=== PATIENT | male | born 1940 | race Caucasian/White ===

== ENCOUNTER 2017-06-10 06:01 | Inpatient (IN) | payer OTHER ==
[~2017-06-10] VITALS: Ht 170.2 cm; Wt 98.0 kg
[2017-06-10 06:23] VITALS: BP 141/76
--- NOTE | 2017-06-10 12:15 | NUR ---
RECIEVED PT. FROM RECOVERY ROOM S/P LEFT TOTAL KNEE REPLACEMENT ORIF 06/10/17 W/ ADAPTIC DRESSING STEPHEN WRAP BANDAGE W/ HEMOVAC INPLACE NO SUCTION NOTED SERROUSANGUIONOUS DRAINAGE. ON CPM MACHINE ROM 40 DEGREE W/ 60 DEGREE FLEXION ANA CRISTINA. WELL.C/O SLIGHT PAIN IN LEFT KNEE W/ SCALE OF 2/10 MADE PT. COMFORTABLE IN BED. CALL LIGHT W/ IN REACH.NO ACUTE DISTRESS NOTED.V/S T- 97.6-HR-79 RR-20 B/P 120/66 W/ 02 SAT 97% W/ 2L N/C.WILL CONT. TO MONITOR PT.
[2017-06-10 12:49] VITALS: BP 120/66
--- NOTE | 2017-06-10 14:38 | NUR ---
PT COMPLAIN OF PAIN FROM LEFT KNEE SURGERY. S/P TOTAL LEFT KNEE REPLACEMENT. MEDICATED ORDERED WITH DILAUDID. MADE COMFORTABLE IN BED. CALL LIGHT WITHIN REACH. HEMOVAC IN PLACE WITH OUTPUT OF 400 CC BRIGHT RED BLOODY DRAINAGE. CPM MACHINE CONTINUED 40 DEGREE ROM AND 60 DEGREE FLEXION AND TOLERATING WELL. IV FLUIDS INFUSING WELL ON RIGHT HAND.
[2017-06-10 14:58] VITALS: BP 123/70
[2017-06-10] MEDS ORDERED: LOSARTAN POTASS1 TA6 PO ×2 (14:58→15:00)
[2017-06-10] MEDS ORDERED: SIMVASTATIN10 M1 PO (15:00)
[2017-06-10] MEDS ORDERED: METOPROLOL SUCC50 M2 PO (15:01)
[2017-06-10] MEDS ORDERED: ALLOPURINOL100 MG PO (15:01)
[2017-06-10] MEDS ORDERED: ALFUZOSIN HYDRO10 M1 PO (15:02)
--- NOTE | 2017-06-10 15:32 | NUR ---
P.T. NOTES CPM MACHINE APPLIED AND SET UP AT MODERATE SPEED FROM 0-60* ON HIS (L) LE AND INFORMED THE NURSE OF ITS REMOVAL TONIGHT AT 10:30 PM. CPM SET UP
[2017-06-10 15:48] LABS: MAGNESIUM 1.7 mg/dL (1.8-2.4); PHOSPHOROUS 4.4 mg/dL (2.5-4.9)
[2017-06-10 15:49] LABS: T3 TOTAL 0.73 ng/mL
--- NOTE | 2017-06-10 16:07 | NUR ---
P.T AT BEDSIDE AND SET UP CPM MACHINE TO 0-60 DEGREE AND NEEDS TO BE OFF THE CPM MACHINE AT 22;30 PM TONIGHT AND ACC.TO P.T.THEY WILL BE BACK TO ADJUST THE CPM MACHINE TOMORROW.PT. RESTING COMFORTABLY IN BED. CAll light w/ in reach.
[2017-06-10 16:11] LABS: FREE T4 1.08 ng/dL (0.76-1.46); FREE THYROXINE INDEX 2.8 ug/dL (1.4-4.5); T4(THYROXINE) 6.9 ug/dL (4.7-13.3)
[2017-06-10 16:58] VITALS: BP 105/54
--- NOTE | 2017-06-10 18:39 | NUR ---
PT. DID NOT VOID YET ENCOURAGE TO USE THE URINAL BUT PT. STATED HE WILL TRY IT LATER VISITORS AT BEDSIDE.CALL LIGHT W/ IN REACH.
[2017-06-10 18:48] LABS: PLATELET COUNT 175 x10^3mcL (130-400); RED CELL DISTRIBUTION WIDTH 14.2 % (11.5-14.5)
[2017-06-10 18:51] LABS: BASOPHIL % 0 % (0-2)
[2017-06-10 18:53] LABS: CALCIUM 8.3 mg/dL (8.5-10.1); CARBON DIOXIDE 21.7 mmol/L (21-32); CHLORIDE SERUM 104 mmol/L (98-107); CREATININE SERUM 1.4 mg/dL (0.7-1.3); GLUCOSE SERUM 173 mg/dL (74-106); POTASSIUM SERUM 4.3 mmol/L (3.5-5.1); SODIUM SERUM 139 mmol/L (136-145)
--- NOTE | 2017-06-10 20:14 | NUR ---
PT RESTING IN BED. AOX4. VERBAL WITH CLEAR SPEECH. ON O2 2L VIA NC 99%. LUNGS CLEAR BILATERALLY. ON TELE 34, NSR. DENIES ANY CHEST PAIN. ABD ROUND AND SOFT. BOWEL SOUNDS ACTIVE. SKIN WARM AND DRY. IV TO RIGHT HAND PATENT AND INTACT. NO S/S OF INFECTION NOTED. MAG SULFATE 1 GM IVPB INFUSING WELL. CPM MACHINE TO LLE IN PLACE. STEPHEN WRAP TO LEFT KNEE. PT C/O 8/10 PAIN TO LEFT KNEE. PRN DILAUDID 1 MG IVP GIVEN. SIDE RAILS UP. CALL LIGHT WITHIN REACH. WILL CONTINUE TO MONITOR.
[2017-06-10 21:18] VITALS: BP 119/68
--- NOTE | 2017-06-10 21:37 | NUR ---
AT 2114, NOTED PT HASN'T VOIDED SINCE COMING BACK FROM SURGERY. PERFORMED BLADDERSCAN = [address] KATZ NOTIFIED AND AWARE. PER STRAIGHT CATH AT THIS TIME. FOR CPM MACHINE, KEEP PT ON TOLERATED. OKAY TO TURN OFF WHEN ASLEEP AND TURN BACK ON WHEN WAKING UP IN THE AM. PT STRAIGHT CATHED, 200 YELLOR URINE REMOVED. CPM MACHINE TURNED OFF AT THIS TIME FOR PT TO SLEEP. DENIES ANY PAIN AT THIS TIME. NO S/S OF DISTRESS NOTED. IV INFUSING WELL. CALL LIGHT WITHIN REACH. WILL CONTINUE TO MONITOR.
--- NOTE | 2017-06-11 00:34 | NUR ---
PT RESTING IN BED WITH EYES CLOSED. BREATHING EQUAL AND UNLABORED. REMAINS ON O2 2L VIA NC. NO S/S OF RESPIRATORY DISTRESS NOTED. IV PATENT AND INFUSING WELL. LLE EXTENDED ON CPM MACHINE, BUT REMAINS OFF AT THIS TIME. NO S/S OF DISTRESS NOTED. RESTING COMFORTABLY WITH RELAXED FACIAL FEATURES. CALL LIGHT WITHIN REACH. WILL CONTINUE TO MONITOR.
[2017-06-11 05:37] VITALS: BP 112/63
--- NOTE | 2017-06-11 06:15 | NUR ---
PT SLEPT WELL THROUGHOUT THE NIGHT. BREATHING EQUAL AND UNLABORED. EASILY AROUSED WHEN NAME CALLED. PT HAD NO VOID SINCE STRAIGHT CATH LAST EVENING. RAMIREZ CATHETER INSERTED PER DR. KATZ D/T PT NOT VOIDING AFTER STRAIGHT CATH. PT TOLERATED WELL. F/C DRAINING CLEAR YELLOW URINE. HEMOVAC DRAINED 100 ML. CPM MACHINE ON FLEXION 60. DENIES ANY PAIN AT THIS TIME. NO S/S OF DISTRESS NOTED. CALL LIGHT WITHIN REACH. WILL CONTINUE TO MONITOR.
[2017-06-11 06:17] LABS: BASOPHIL % 0.1 % (0-2); PLATELET COUNT 156 x10^3mcL (130-400); RED CELL DISTRIBUTION WIDTH 14.2 % (11.5-14.5)
[2017-06-11 06:24] LABS: CALCIUM 8.2 mg/dL (8.5-10.1); CARBON DIOXIDE 23.3 mmol/L (21-32); CHLORIDE SERUM 100 mmol/L (98-107); CREATININE SERUM 1.4 mg/dL (0.7-1.3); GLUCOSE SERUM 120 mg/dL (74-106); POTASSIUM SERUM 4.8 mmol/L (3.5-5.1); SODIUM SERUM 134 mmol/L (136-145)
[2017-06-11 06:47] LABS: microscopic required? NO
--- NOTE | 2017-06-11 07:20 | NUR ---
DR KATZ AT BEDSIDE, DR REMOVED HEMOVAC, SMALL SANGUINOUS OUTPUT. PATIENT TOLERATED WELL. SMALL SATURATION NOTED TO STEPHEN BANDAGE. PER DR KATZ, CHANGE DRESSING TODAY. PATIENT A/O, ABLE TO MAKE NEEDS KNOWN AND FOLLOW DIRECTIONS. TELE 34, READING SR, DENIES CP. DENIES HEADACHE. LUNGS DIM BASES OTHERWISE CTA, NO RESP DISTRESS NOTED ON RA, INCENTIVE SPIROMETER WITHIN REACH, DEMONSTRATED UNDERSTANDING ON HOW TO USE. PERIPHERAL PULSES PALPABLE, NO EDEMA NOTED, DENIES NUMBNESS/TINGLING TO ALL EXTREMITIES, ABLE TO WIGGLE TOES TO LEFT FOOT. BOWEL SOUNDS ACTIVE, ADMITS TO PASSING GAS, NO BM YET. DENIES N/V. RAMIREZ IN PLACE DRAINING YELLOW URINE TO GRAVITY. PATIENT REQUESTED TO ATTEMPT VOIDING WITHOUT RAMIREZ, DR KATZ SAYS OKAY TO TRY DURING PHYSICAL THERAPY. RAMIREZ NOW CLAMPED FOR NOW, INFORMED PATIENT TO NOTIFY NURSE WHEN FEELING URGE TO VOID. CPM MACHINE NOTED TO LEFT KNEE, TRAPEZE IN PLACE. LEFT KNEE WITH STEPHEN WRAP. STATES PAIN TOLERABLE AT THIS TIME. IV ACCESS TO RH RUNNING NS INFUSING WELL SITE WNL. CALL LIGHT WITHIN REACH.
[2017-06-11 08:19] LABS: UA SPECIFIC GRAVITY 1.015 (1.005-1.035); urine erythrocyte NEGATIVE (NEGATIVE)
[2017-06-11 08:40] VITALS: BP 124/69
--- NOTE | 2017-06-11 09:40 | NUR ---
DILAUDID GIVEN FOR PAIN 8/10 TO LEFT KNEE. ALL AM MEDS GIVEN, NO DIFFICULTY SWALLOWING OBSERVED. PATIENT REQUESTING TO BE PREMEDICATED FOR PHYSICAL THERAPY, ARRANGED WITH PT TO SEE PATIENT IN THE AFTERNOON FOR NEXT PAIN POWER TECHNICIAN.
--- NOTE | 2017-06-11 13:40 | NUR ---
PATIENT SITTING UP ON CHAIR, STATES PHYSICAL THERAPISTS GOT HIM UP FROM BED AND AMBULATED A COUPLE STEPS. REQUESTING FOR PAIN MED, DILAUDID GIVEN. WILL CONT TO MONITOR.
[2017-06-11 13:43] VITALS: BP 121/68
--- NOTE | 2017-06-11 13:45 | NUR ---
RAMIREZ STILL CLAMPED, PATIENT STATES FEELS URGE TO VOID BUT UNSURE IF READY TO WALK TO RESTROOM AND WOULD LIKE TO KEEP RAMIREZ ON A LITTLE WHILE LONGER. ASHLEY UNCLAMPED, WILL NOTIFY
--- NOTE | 2017-06-11 14:15 | NUR ---
PATIENT NOW LAYING IN BED, PLACED BACK ON CPM MACHINE BY PHYSICAL THERAPISTS. PER DR ORDER, PATIENT TO REMOVE CPM MACHINE AT 2200. WILL ENDORSE TO NOC RN. PATIENT TOLERATED WELL. WILL CONT TO MONITOR.
[2017-06-11 17:08] VITALS: BP 116/61
--- NOTE | 2017-06-11 17:45 | NUR ---
PER DR BARCENAS, EREN TO [facility]ACE[facility] HAGEN AND TO ENDORSE TO [facility] NURSE. PATIENT STATES PAIN TOLERABLE AT THIS TIME. NO DISTRESS NOTED. VISITOR AT BEDSIDE.
--- NOTE | 2017-06-11 18:55 | NUR ---
DRESSING TO LLE CHANGED. PICTURE TAKEN OF STAPLED INCISION SITE TO KNEE. ADAPTIC, GAUZE, KERLIX AND STEPHEN WRAP APPLIED. PATIENT STATES OKAY TO REMOVE RAMIREZ NOW, REMOVED. PATIENT TOLERATED FAIRLY. DILAUDID GIVEN FOR KNEE PAIN. CPM MACHINE IN PLACE AT FLEXION SETTING 70. WILL ENDORSE TO NOC NURSE.
--- NOTE | 2017-06-11 19:20 | NUR ---
PT A/O X4 WITH AT BEDSIDE. TELE #43, NSR, DENIES CHEST PAIN. PULSES PALPABLE, TRACE EDEMA TO LLE NOTED. LUNG SOUNDS CTA. PT ON RA, 02 SAT-87%, PLACED PT ON 02 2L NC, 02 SAT-95%. PT DENIES SOB. ABD IS SOFT AND ROUND, BOWEL SOUNDS ACTIVE. PT VOIDS ADEQUATELY USING A URINAL. WEAKNESS TO LLE. CPM MACHINE TO LLE, FLEXION AT 70. TRAPEZE BAR IN PLACE. STEPHEN WRAP TO LEFT KNEE IN PLACE, NO ACTIVE BLEEDING OBSERVED. PT COMPLAINS OF 2/10 LEG PAIN, PT STATES PAIN IS TOLERABLE AT THIS TIME. IVF INFUSING WELL TO RIGHT HAND, NS @ 100 ML/HR. BED IN LOWEST SETTING, SIDE RAILS UP X2, CALL LIGHT WITHIN REACH. WILL CONTINUE TO MONITOR.
[2017-06-11 20:27] VITALS: BP 110/57
--- NOTE | 2017-06-11 22:15 | NUR ---
ATTEMPTED TO REMOVE CPM MACHINE PER DR'S INSTRUCTIONS, PT INSISTS ON KEEPING CPM MACHINE IN PLACE. CPM MACHINE IS TURNED OFF BUT REMAINS IN PLACE.
--- NOTE | 2017-06-11 23:13 | NUR ---
PT COMPLAINING OF 8/10 PAIN TO LEFT KNEE. ADMINISTERED DILAUDED ORDERED. WILL MONITOR FOR PAIN RELIEF.
--- NOTE | 2017-06-12 04:58 | NUR ---
PT COMPLAINING OF 8/10 LEFT KNEE PAIN. ADMINISTERED DILAUDID ORDERED. WILL MONITOR FOR RELIEF. NO RESP DISTRESS OBSERVED AT THIS TIME.
[2017-06-12 05:18] VITALS: BP 113/56
--- NOTE | 2017-06-12 06:16 | NUR ---
PT SLEPT WELL THROUGHOUT THE NIGHT. NO RESP DISTRESS OBSERVED, NO SIGNS OF PAIN NOTED AT THIS TIME. STEPHEN WRAP TO LEFT KNEE IN PLACE, NO BLEEDING OBSERVED. CPM MACHINE TO LLE. IVF INFUSING WELL TO RIGHT HAND, NS @ 100 ML/HR. WILL ENDORSE CARE TO AM NURSE.
[2017-06-12 07:21] LABS: BASOPHIL % 0.2 % (0-2); PLATELET COUNT 132 x10^3mcL (130-400); RED CELL DISTRIBUTION WIDTH 14.4 % (11.5-14.5)
--- NOTE | 2017-06-12 07:40 | NUR ---
RECIEVED PT IN BED, A/A/O X 4. ABLE TO MAKE NEEDS KNOWN. ON TELE # 43, SHOWING NSR WITH HR = 68. TONY RADIAL AND PEDAL PULSES PRESENT, CAP REFILL < 3 SECS, TRACE EDEMA TO LLE. PT ON LOVENOX SQ. TONY UPPER AND LOWER LUNG SOUNDS CLEAR, ON R/A WITH SPO2 98%. LAST BM 06/10/17. ABD SOFT, ROUND, NON-TENDER. NORMOACTIVE BOWEL SOUNDS X 4 QUADS. VOIDS FREELY, USING URINAL. GENERALIZED WEAKNESS. S/P L KNEE ORIF 06/10/17; L KNEE HAS STEPHEN WRAP. PT USES TRAPEZE BAR TO TURN / REPOSITION SELF. CPM IN PLACE. DENIES PAIN AT THIS TIME. IV SITE ON CDI, RUNNING NS 100 ML/HR. SIDE RAILS UP X 2, BED IN LOW POSITION, CALL LIGHT WITHIN REACH. WILL CONTINUE TO MONITOR.
[2017-06-12 07:41] LABS: CARBON DIOXIDE 25.2 mmol/L (21-32); CHLORIDE SERUM 100 mmol/L (98-107); GLUCOSE SERUM 92 mg/dL (74-106); MAGNESIUM 1.8 mg/dL (1.8-2.4); PHOSPHOROUS 2.7 mg/dL (2.5-4.9); POTASSIUM SERUM 4.3 mmol/L (3.5-5.1); SODIUM SERUM 133 mmol/L (136-145)
--- NOTE | 2017-06-12 08:30 | NUR ---
DR PRETTY, RESIDENTS, CHARGE NURSE, AND ASSIGNED NURSE CAME IN TO SEE PT; DISCUSSED CARE PLAN WITH PT; ALL QUESTIONS ANSWERED; PT VERBLALIZED UNDERSTANDING.
--- NOTE | 2017-06-12 08:38 | NUR ---
PT GIVEN NORCO 10/325 MG 1 TAB FOR LLE PAIN 05/18. TOOK MED WITHOUT DIFFICULTY. WILL CONTINUE TO MONITOR.
[2017-06-12 09:30] VITALS: BP 104/53
--- NOTE | 2017-06-12 12:10 | NUR ---
ASKED FOR ANOTHER PAIN PILL FOR LLE PAIN; PT ON NORCO 7.5/[address] BARCENAS, PLACED ORDER FOR NORCO 7.5/325 MG Q6PRN TO BE CHANGED TO Q4PRN; GAVE PT A DOSE AFTER MED CONFIRMED; TOOK MED WITHOUT DIFFICULTY. WILL CONTINUE TO MONITOR.
--- NOTE | 2017-06-12 14:30 | NUR ---
PHYSICAL THERAPY DAILY NOTES CO-SIGN All documentation done by the [employer] Investigator for 06/12/17 has been reviewed. I agree with the documentation. I CONCUR W/HTML DEVELOPER NOTE; CONT PER TX PLAN Reviewed/Co-Signed by: Mary Yo V PT Documentation Done by: HÉCTOR SHANKAR HTML DEVELOPER
--- NOTE | 2017-06-12 14:45 | NUR ---
PT IN BED, RESTING COMFORTABLY, WATCHING TV. STATED THAT HE DOES NOT HAVE ANY PAIN AT THIS TIME. ASKED FOR AND GIVEN A "BUCKET OF ICE", HE LIKES TO EAT THE ICE CHIPS. WILL CONTINUE TO MONITOR.
--- NOTE | 2017-06-12 15:19 | NUR ---
PHYSICAL THERAPY DAILY NOTES CO-SIGN All documentation done by the Family Law Attorney for 06/12/17 has been reviewed. I agree with the documentation. Reviewed/Co-Signed by: Donna Pizarro PT Documentation Done by:ROOSEVELT RICHARDSON WORKING SECOND HAND
--- NOTE | 2017-06-12 15:41 | NUR ---
PT NOTES TIME [id number] PATIENT GIVEN FWW DISPENSED BY CASE MANAGEMENT & ORDERED BY DOCTOR. DELIVERED FWW TO PATIENT ROOM. PATIENT EDUCATED ON SAFE USE OF FWW & SAFE TRANSFER. ADDITIONALLY, PATIENT STILL FELT COMFORTABLE W/ CPM @ 0-80 DEGREES. RN AWARE PATIENT'S WAS GIVEN FWW. PRIMARY THERAPIST AWARE. SALMAE
[2017-06-12 18:20] VITALS: BP 141/64
--- NOTE | 2017-06-12 18:35 | NUR ---
PT IN BED, WATCHING TV. NO RESPIRATORY DISTRESS, PAIN, OR DISCOMFORT NOTED. SIDE RAILS UP X 2, CALL LIGHT WITHIN REACH. WILL ENDORSE TO NOC SHIFT.
--- NOTE | 2017-06-12 19:21 | NUR ---
SHIFT REASSESSMENT DONE.PATIENT ALERT AND ORIENTED.BREATHING EASY,O2 AT 2 LITERS.CXR L BASILAR ATELECTASIS.CPM MACHINE TO LLE,OFF AT 2029 REPORTED.OVERHEAD TRAPEZE,ABLE TO USE IT WELL.L KNEE STEPHEN WRAP,ERIC LSO REPORTED.TRACE EDEMA LLE,ON LOVENOX SQ,NO SCD.UEING URINAL AT BEDSIDE.L KNEE PAIN GIVEN PAIN MED AT 1824.CALL LITE IN REACH.
[2017-06-12 20:46] VITALS: BP 132/69
--- NOTE | 2017-06-12 21:03 | NUR ---
ALL PM MEDS GIVEN,SWALLOWS WELL.CPM MACHINE REMOVED COMPLETELY AT 2029.VOIDING WELL IN URINAL.MARÍA URINE.CALL LITE IN REACH.
[2017-06-13 05:35] VITALS: BP 141/78
--- NOTE | 2017-06-13 05:57 | NUR ---
PATIENT VOIDING WELL URINAL,I AND O MEASURED.CPM MACHINE OFF AT THIS TIME,PATIENT CONTINOUS TO SLEEP,WANTING TO TALK TO TAFFY PULLER TODAY.WILL ENDORES TO NEXT SHIFT.CALL LIGHT IN REACH.
[2017-06-13 06:10] LABS: BASOPHIL % 0.4 % (0-2); PLATELET COUNT 131 x10^3mcL (130-400); RED CELL DISTRIBUTION WIDTH 13.6 % (11.5-14.5)
[2017-06-13 06:35] LABS: CALCIUM 8.6 mg/dL (8.5-10.1); CARBON DIOXIDE 24.9 mmol/L (21-32); CHLORIDE SERUM 104 mmol/L (98-107); GLUCOSE SERUM 91 mg/dL (74-106); MAGNESIUM 1.7 mg/dL (1.8-2.4); PHOSPHOROUS 2.5 mg/dL (2.5-4.9); POTASSIUM SERUM 4.1 mmol/L (3.5-5.1); SODIUM SERUM 134 mmol/L (136-145)
--- NOTE | 2017-06-13 07:30 | NUR ---
PT IN BED, A/A/O X 4. ON TELE # 43, SHOWING SR WITH HR = 99. LLE WITH TRACE EDEMA, S/P L KNEE ORIF. WRAPPED IN STEPHEN BANDAGE, CDI. PT ON LOVENOX. DENIES PAIN AT THIS TIME. CPM IN PLACE. TONY UPPER AND LOWER LUNG SOUNDS CLEAR, CHEST RISING EVENLY. ON ROOM AIR, SPO2 = 98%. ABD ROUND, SOFT, NON-TENDER. NORMOACTIVE BOWEL SOUNDS X 4 QUADS. LAST BM 06/10/17. VOIDS FREELY, USING URINAL. NO DYSURIA. GENERALIZED WEAKNESS. ABLE TO TURN / REPOSITION SELF WITH HELP OF OVERHEAD TRAPEZE. IV SITE @ CDI, RUNNING NS @ 100 ML/HR. SIDE RAILS UP X 2, CALL LIGHT WITHIN REACH. BED IN LOW POSITION. WILL CONTINUE TO MONITOR.
[2017-06-13 09:14] VITALS: BP 124/57
--- NOTE | 2017-06-13 09:25 | NUR ---
DR MUJICA, RESIDENTS, CHARGE NURSE, AND ASSIGNED NURSE CAME IN TO SEE PT; DISCUSSED CARE PLAN WITH PT, INCLUDING PLAN TO D/C PT HOME TODAY; ALL QUESTIONS WERE ANSWERED. PT VERBALIZED UNDERSTANDING.
[2017-06-13 11:14] VITALS: Ht 170.2 cm; Wt 98.0 kg
--- NOTE | 2017-06-13 12:05 | NUR ---
PT IN BED, EATING HIS LUNCH. BY BEDSIDE. NO S/S RESPIRATORY DISTRESS, PAIN, OR DISCOMFORT. SIDE RAILS UP X 2, BED IN LOW POSITION, CALL LIGHT WITHIN REACH. WILL CONTINUE TO MONITOR.
[2017-06-13] MEDS ORDERED: APAP/HYDROCODON1 T13 PO (14:11)
[2017-06-13] MEDS ORDERED: COL100 PO (14:12)
[2017-06-13 14:54] VITALS: BP 124/57
--- NOTE | 2017-06-13 16:00 | NUR ---
GAVE PT DISCHARGE PACKET, PRESENT BY BEDSIDE. REVIEWED CURRENT STAY IN HOSPITAL INCLUDING DIAGNOSIS, MEDICATIONS, PROCEDURES, DIET, AND FUTURE APPOINTMENTS. PT ACKNOWLEDGED RECEIPT OF HANDWRITTEN PRESCRIPTION FOR NORCO. PT VERBALIZED UNDERSTANDING, SIGNED ALL FORMS. IV LINE AT D/C'D; 20G 1.25 [place], TIP INTACT. SITE NO BLEEDING, PAIN, OR DISCOMFORT. TELE MONITOR D/C'D AND RETURNED TO TELE STATION.
--- NOTE | 2017-06-13 16:15 | NUR ---
PT LEFT VIA WHEELCHAIR, ACCOMPANIED BY GRANTS ADMINISTRATOR, , AND FAMILY FRIENDS, WITH ALL BELONGINGS. A/A/O X 4, NO RESPIRATORY DISTRESS, PAIN, OR DISCOMFORT NOTED. PT LEFT VIA PRIVATE AUTO.
== END 2017-06-13 16:16 | disposition home health service (06) | DRG 469 ==
LOC: MU 06:01
PROVIDERS: Neuromusculoskeletal Medicine, Sports Medicine; ADMIT Family Medicine
PROC: 0SRD0J9 Replacement of Left Knee Joint with Synthetic Substitute, Cemented, Open Approach (ICD-10-PCS; principal; 2017-06-10 07:30)
DX: M17.12 Unilateral primary osteoarthritis, left knee (principal); N17.0 Acute kidney failure with tubular necrosis; E87.1 Hypo-osmolality and hyponatremia; I10 Essential (primary) hypertension; E83.42 Hypomagnesemia; E83.51 Hypocalcemia; D64.9 Anemia, unspecified; M10.9 Gout, unspecified; N40.0 Benign prostatic hyperplasia without lower urinary tract symptoms; H26.9 Unspecified cataract; Z68.33 Body mass index [BMI] 33.0-33.9, adult; E78.00 Pure hypercholesterolemia, unspecified
CPT/HCPCS: 82962; 83880; 84439; 97110-GP; 97116-GP; 97139; 97530-GP; C1713; C1776; J0690; J1170; J1650; J2250; J2270; J2405; J2704; J3010; J3475; J3490; J7030; J7120; Q0092